=== PATIENT | female | born 1935 | race Hispanic/Latino ===

== ENCOUNTER 2016-03-29 14:36 | Outpatient (CLI) | payer MEDICARE, OTHER ==
--- NOTE | 2016-03-29 15:48 | XRay Report ---
Chest 2 views: History: Cough. Findings: Normal cardiomediastinal silhouette. Trachea is midline. Prominent bronchovascular markings with evidence of mild bronchitis. No consolidation or pleural effusion. Impression: Probable bronchitis. No pneumonitis.
== END 2016-03-29 14:37 | disposition home or self-care (01) ==
LOC: XRAY 14:36
PROVIDERS: ATTEND Internal Medicine
DX: R05 Cough (principal)
CPT/HCPCS: 71020

== ENCOUNTER 2016-11-09 10:16 | Outpatient (CLI) | payer MEDICARE, OTHER ==
--- NOTE | 2016-11-09 11:24 | Mammography Report ---
Bilateral mammogram: Compared to 11/09/15. CAD study utilized. Findings: Predominantly adipose tissue bilaterally. Bilateral benign calcifications. No mass. Normal axilla. Impression: Benign findings. Annual followup recommended. BI-RADS CATEGORY: 2 = Benign ACR BI-RADS MAMMOGRAPHIC CODES: 0 = Needs additional imaging evaluation; 1 = Negative; 2 = Benign; 3 = Probably benign; 4 = Suspicious; 5 = Malignant; 6 = Known biopsy-proven malignancy COMMENT: 1. Dense breast tissue, i.e., adenosis, fibrocystic changes, etc., may obscure an underlying neoplasm. 2. Approximately 10% of cancers are not detected with mammography. 3. A negative mammography report should not delay biopsy if a clinically suspicious mass is present. COMMENT: Patient follow-up letters are generated in [employer].
== END 2016-11-09 10:17 | disposition home or self-care (01) ==
LOC: MAMMO 10:16
PROVIDERS: ATTEND Internal Medicine
DX: Z12.31 Encounter for screening mammogram for malignant neoplasm of breast (principal)
CPT/HCPCS: 77067; G0202

== ENCOUNTER 2017-11-10 10:04 | Outpatient (CLI) | payer MEDICARE, OTHER ==
--- NOTE | 2017-11-10 15:02 | Mammography Report ---
BILATERAL DIGITAL SCREENING MAMMOGRAM with CAD: 11/10/17 10:04:00 CLINICAL: Routine screening. COMPARISON:11/09/16 FINDINGS: The breasts are heterogeneously dense, which may obscure small masses. An upper asymmetry on the left MLO view requires additional imaging.No architectural distortion or suspicious calcifications.Bilateral benign calcifications with prominent vascular calcifications. IMPRESSION: Left upper asymmetry requiring further workup. BI-RADS CATEGORY: 0 -- Additional Imaging Evaluation Required RECOMMENDATION: Recall for left mediolateral and spot magnification MLO views and left breast ultrasound if needed. ACR BI-RADS MAMMOGRAPHIC CODES: 0 = Needs additional imaging evaluation; 1 = Negative; 2 = Benign; 3 = Probably benign; 4 = Suspicious; 5 = Malignant; 6 = Known biopsy-proven malignancy COMMENT: 1. Dense breast tissue, i.e., adenosis, fibrocystic changes, etc., may obscure an underlying neoplasm. 2. Approximately 10% of cancers are not detected with mammography. 3. A negative mammography report should not delay biopsy if a clinically suspicious mass is present. COMMENT: Patient follow-up letters are generated via our [employer] application.
== END 2017-11-10 10:05 | disposition home or self-care (01) ==
LOC: MAMMO 10:04
PROVIDERS: ATTEND Internal Medicine
DX: Z12.31 Encounter for screening mammogram for malignant neoplasm of breast (principal); E78.00 Pure hypercholesterolemia, unspecified; I10 Essential (primary) hypertension; I48.91 Unspecified atrial fibrillation; Z90.49 Acquired absence of other specified parts of digestive tract; Z87.891 Personal history of nicotine dependence
CPT/HCPCS: 77067

== ENCOUNTER 2018-06-05 08:54 | Outpatient (CLI) | payer MEDICARE ==
[2018-06-05 10:47] LABS: BUN/Creatinine Ratio 20; Blood Urea Nitrogen 14 mg/dL (7-17); Calcium 9.8 mg/dL (8.4-10.2); Hemolysis Index 2
[2018-06-13 06:18] LABS: Vitamin D, 25-OH, D2 SEE SCANNED RESULT
== END 2018-06-05 08:55 | disposition home or self-care (01) ==
LOC: LAB 08:54
PROVIDERS: ATTEND Internal Medicine
DX: Z00.01 Encounter for general adult medical examination with abnormal findings (principal); E78.5 Hyperlipidemia, unspecified; I11.9 Hypertensive heart disease without heart failure; I48.91 Unspecified atrial fibrillation; I65.21 Occlusion and stenosis of right carotid artery; E88.81 Metabolic syndrome and other insulin resistance; R32 Unspecified urinary incontinence; E78.00 Pure hypercholesterolemia, unspecified; Z90.49 Acquired absence of other specified parts of digestive tract
CPT/HCPCS: 36415; 80048; 80162; 82306

== ENCOUNTER 2018-08-01 08:58 | Outpatient (CLI) | payer MEDICARE ==
[2018-08-01 10:59] LABS: Hematocrit 39.7 % (30.3-42.9); Hemoglobin 13.4 gm/dl (10.1-14.3); Mean Corpuscular HGB Conc 34 % (30-34); Mean Corpuscular Volume 93 fl (79-97); Platelet Count 239 K/mm3 (140-440); Red Blood Count 4.25 M/mm3 (3.65-5.03); Red Cell Distribution Width 13.5 % (13.2-15.2)
[2018-08-01 11:23] LABS: Chol/HDL Ratio 2.62 %
[2018-08-04 19:14] LABS: Vitamin D, 25-OH, D2 <4 ng/mL
== END 2018-08-01 08:59 | disposition home or self-care (01) ==
LOC: LAB 08:58
PROVIDERS: ATTEND Internal Medicine
DX: Z13.21 Encounter for screening for nutritional disorder (principal); E11.9 Type 2 diabetes mellitus without complications; E78.5 Hyperlipidemia, unspecified; E78.00 Pure hypercholesterolemia, unspecified; I10 Essential (primary) hypertension
CPT/HCPCS: 36415; 80061; 82306; 82607; 83036; 84443; 85027

== ENCOUNTER 2018-11-12 11:05 | Outpatient (CLI) | payer MEDICARE ==
--- NOTE | 2018-11-12 16:12 | Mammography Report ---
DIGITAL SCREENING MAMMOGRAM WITH CAD, 11/12/2018 INDICATION: Routine screening mammography. TECHNIQUE: Digital bilateral 2D mammography was obtained in the craniocaudal and mediolateral obliq ue projections. This examination was interpreted with the benefit of Computer-Aided Detection analysi s. COMPARISON: 11/10/2017 FINDINGS: Breast Density: The breasts are heterogeneously dense, which may obscure small masses. There is no evidence of dominant mass, suspicious calcifications or architectural distortion in eithe r breast. Since bilateral benign calcifications, most of which are vascular. IMPRESSION: No mammographic evidence of malignancy. Follow up recommendation: Routine yearly BI-RADS Category 2: Benign. A "normal" or negative report should not discourage follow up or biopsy of a clinically significant f inding. A written summary of these findings will be mailed to the patient. The patient will be entered into a mammography reporting system which will generate a reminder letter for the patient's next appointmen t at the appropriate interval. The [employer] recommends yearly mammograms starting at age 40 and continuing as l chante as a woman is in good health. Breast MRI is recommended for women with an approximate 20-25% or greater lifetime risk of breast cancer, including women with a strong family history of breast or ova karen cancer or who have been treated for Hodgkin's disease. Signer Name: Yovany Fabian MD Signed: 11/12/2018 4:07 PM Workstation Name: [id number]
== END 2018-11-12 11:06 | disposition home or self-care (01) ==
LOC: MAMMO 11:05
PROVIDERS: ATTEND Internal Medicine
DX: Z12.31 Encounter for screening mammogram for malignant neoplasm of breast (principal)
CPT/HCPCS: 77067

== ENCOUNTER 2018-12-17 10:03 | Outpatient (CLI) | payer MEDICARE ==
[2018-12-17 10:40] LABS: Chol/HDL Ratio 2.23 %
== END 2018-12-17 10:04 | disposition home or self-care (01) ==
LOC: LAB 10:03
PROVIDERS: ATTEND Internal Medicine
DX: I48.91 Unspecified atrial fibrillation (principal); I10 Essential (primary) hypertension; Z90.49 Acquired absence of other specified parts of digestive tract; F17.200 Nicotine dependence, unspecified, uncomplicated; Z79.899 Other long term (current) drug therapy
CPT/HCPCS: 36415; 80061; 83036